=== PATIENT | female | born 1990 | race Caucasian/White ===

== ENCOUNTER 2017-03-19 00:21 | Outpatient (CLI) | END 2017-03-19 04:30 | disposition home or self-care (01) ==

== ENCOUNTER 2017-04-04 10:58 | Outpatient (CLI) | END 2017-04-04 14:13 | disposition home or self-care (01) ==

== ENCOUNTER 2017-05-02 11:55 | Outpatient (CLI) | END 2017-05-02 14:35 | disposition home or self-care (01) ==

== ENCOUNTER 2017-05-16 12:34 | Inpatient (IN) | END 2017-05-20 16:18 | disposition home or self-care (01) | DRG 765 ==